=== PATIENT | female | born 1960 | race Caucasian/White ===

== ENCOUNTER 2019-02-09 16:56 | Emergency (ER) | payer OTHER ==
[~2019-02-09] VITALS: Ht 160 cm; Wt 63.5 kg
[2019-02-09] MEDS ORDERED: IV NORMAL SALINE 1000 ML BAG IV ONE ×2 (17:45→19:15)
[2019-02-09] MEDS ORDERED: LEVO150T8 PO (18:08)
[2019-02-09 18:32] LABS: BASOPHILS % (AUTO) 0.1 % (0.0-2.0); EOSINOPHILS % (AUTO) 0.1 % (0.0-7.0); HEMOGLOBIN 8.2 g/dL (10.9-14.3); LYMPHOCYTES # (AUTO) 1.5 K/uL (20.0-40.0); LYMPHOCYTES % (AUTO) 13.2 % (20.5-51.5); MEAN CORPUSCULAR HEMOGLOBIN 20.6 uug (24.7-32.8); MEAN CORPUSCULAR HGB CONC 31 g/dL (32.3-35.6); MEAN CORPUSCULAR VOLUME 65.5 fL (75.5-95.3); MONOCYTES # (AUTO) 1.3 K/uL (2.0-10.0); NEUTROPHILS # (AUTO) 8.2 K/uL (1.8-8.9); NEUTROPHILS % (AUTO) 74.6 % (38.5-71.5); PLATELET COUNT (AUTO) 467 K/uL (179-408); RED BLOOD CELL COUNT(AUTO) 3.98 MIL/uL (3.63-4.92)
[2019-02-09] MEDS ORDERED: ONDANSETRON 4 MG/2 ML VIAL ONE (18:44)
[2019-02-09] MEDS ORDERED: MORPHINE SULFATE 4 MG/1 ML DISP.SYRIN ONE (18:44)
[2019-02-09] MEDS ORDERED: MORPHINE SULFATE 4 MG/1 ML DISP.SYRIN IV ONE (18:45)
[2019-02-09] MEDS ORDERED: ONDANSETRON 4 MG/2 ML VIAL IV ONE (18:45)
[2019-02-09 18:46] LABS: CREATININE 0.9 mg/dL (0.6-1.3); POTASSIUM 3.5 mmol/L (3.5-5.1)
[2019-02-09 19:02] LABS: BILIRUBIN,DIRECT 0.2 mg/dL (0.0-0.2); BILIRUBIN,TOTAL 0.8 mg/dL (0.2-1.0); TOTAL PROTEIN, SERUM 7.5 g/dL (6.4-8.2)
[2019-02-09] MEDS ORDERED: SWABABLE VALVE TRANSFER SET EA MC ONE (19:13)
[2019-02-09] MEDS ORDERED: IV NORMAL SALINE 250 ML IV ONE (19:13)
[2019-02-09] MEDS ORDERED: IOHEXOL 300MG/ML 100 ML INFUS..BTL ONE (19:13)
[2019-02-09 19:20] LABS: BAND % (MANUAL) 2 % (0-10); LYMPHOCYTES % (MANUAL) 13 % (20-40); MONOCYTES % (MANUAL) 11 % (2-10); NEUTROPHILS % (MANUAL) 74 % (42-75)
--- NOTE | 2019-02-09 19:40 | NUR ---
Pt. taken off unit for CT, IV infiltrated and discontinued,
[2019-02-09] MEDS ORDERED: PIPERACILLIN SODIUM/TAZOBACTAM 3.375 G in IV DEXTROSE 5% 50 ML IV ONE (21:00)
[2019-02-09 21:04] LABS: *BILIRUBIN,URIN NEGATIVE (NEGATIVE); *BLOOD, URINE 2+ (NEGATIVE); *CLARITY,URINE CLEAR (CLEAR); *COLOR,URINE YELLOW (YELLOW); *KETONES,URINE NEGATIVE (NEGATIVE); *UROBILINOGEN,URINE 0.2 E.U./dl (NORMAL); LEUKOCYTE ESTERASE ,URINE NEGATIVE (NEGATIVE); NITRITE, URINE NEGATIVE (NEGATIVE); UGLUCOSE NEGATIVE (NEGATIVE)
[2019-02-09 21:14] LABS: BACTERIA,URINE FEW /HPF (NONE SEEN); SQUAMOUS EPITHELIAL CELL,UR FEW /HPF (NONE SEEN); WBC,URINE 0-3 /HPF (0-3)
[2019-02-09] MEDS ORDERED: PIPERACILLIN SODIUM/TAZO 3.375 GM VIAL ONE (21:15)
--- NOTE | 2019-02-09 21:56 | NUR ---
Awaiting call back from [place] for bed, pt. resting in bed, NAD
--- NOTE | 2019-02-09 23:24 | NUR ---
Report given to Fritz ARMSTRONG, awaiting call back for transport details,
--- NOTE | 2019-02-09 23:29 | NUR ---
Pt. going to room 201B, admitting MD Crespo, report called to [phone], transfer consent signed,
--- NOTE | 2019-02-09 23:36 | NUR ---
Pt. up to use restroom, ambulates w/ steady gait, IV intact/patent - no s/s infiltration/phlebitis, monitoring from nurse station,
--- NOTE | 2019-02-10 00:02 | NUR ---
Nael deal/ Samia @ [facility] ambulance ETA for transport @ 0020,
--- NOTE | 2019-02-10 00:25 | NUR ---
[facility] ambulance unit #[id number] here for transport,
--- NOTE | 2019-02-10 00:34 | NUR ---
Pt. taken off unit via stretcher by ambulance, all belongings w/ pt., chart copied and paperwork sent, IV patent/intact - no s/s infiltration/phlebitis, VSS, NAD
--- NOTE | 2019-02-10 00:36 | NUR ---
Per Radiology - CD imaging unable to be performed at this time,
== END 2019-02-10 00:38 | disposition short-term general hospital (02) ==
LOC: ER 16:56
DX: K57.30 Diverticulosis of large intestine without perforation or abscess without bleeding (principal); K51.90 Ulcerative colitis, unspecified, without complications; D62 Acute posthemorrhagic anemia; E03.9 Hypothyroidism, unspecified; Z79.899 Other long term (current) drug therapy
CPT/HCPCS: 36415; 74177; 80048; 80076; 81000; 81001; 83690; 84484; 85025; 85730; 86850; 86900; 86901; 93005; 96365; 96374; 99285; J2270; J2543; J7060; Q9967; 70030-TC; A4663; J2405; J7030; J7050

== ENCOUNTER 2019-02-22 12:11 | Emergency (ER) | payer OTHER ==
[~2019-02-22] VITALS: Ht 160 cm; Wt 63.5 kg
[~2019-02-22 12:11] MED LIST: LEVO150T8 PO
[2019-02-22] MEDS ORDERED: ONDANSETRON 4 MG/2 ML VIAL IV ONE (12:30)
[2019-02-22] MEDS ORDERED: MORPHINE SULFATE 2 MG/1 ML DISP.SYRIN IV ONE (12:30)
[2019-02-22] MEDS ORDERED: IV NORMAL SALINE 1000 ML BAG IV ONE (12:30)
[2019-02-22] MEDS ORDERED: MORPHINE SULFATE 4 MG/1 ML DISP.SYRIN ONE (12:33)
[2019-02-22] MEDS ORDERED: ONDANSETRON 4 MG/2 ML VIAL ONE (12:33)
[2019-02-22 12:46] LABS: HEMOGLOBIN 8.6 g/dL (10.9-14.3); WHITE BLOOD COUNT (AUTO) 9.2 K/uL (3.8-11.8)
[2019-02-22 12:50] LABS: POTASSIUM 3.7 mmol/L (3.5-5.1)
--- NOTE | 2019-02-22 12:54 | NUR ---
PT IS IN ROOM #1A. DR BERMUDEZ EVALUATED THE PT.
[2019-02-22 12:56] LABS: BILIRUBIN,DIRECT 0.2 mg/dL (0.0-0.2); BILIRUBIN,TOTAL 0.7 mg/dL (0.2-1.0); TOTAL PROTEIN, SERUM 7.5 g/dL (6.4-8.2)
[2019-02-22] MEDS ORDERED: IOHEXOL 300MG/ML 100 ML INFUS..BTL ONE (12:57)
[2019-02-22] MEDS ORDERED: IV NORMAL SALINE 250 ML IV ONE (12:57)
[2019-02-22] MEDS ORDERED: SWABABLE VALVE TRANSFER SET EA MC ONE (12:57)
[2019-02-22 13:04] LABS: BASOPHILS % (AUTO) 0.5 % (0.0-2.0); EOSINOPHILS # (AUTO) 0.1 K/uL (0.0-0.7); EOSINOPHILS % (AUTO) 0.7 % (0.0-7.0); HEMATOCRIT 27.4 % (31.2-41.9); LYMPHOCYTES # (AUTO) 1.4 K/uL (20.0-40.0); LYMPHOCYTES % (AUTO) 14.9 % (20.5-51.5); MEAN CORPUSCULAR HEMOGLOBIN 20.9 uug (24.7-32.8); MEAN CORPUSCULAR HGB CONC 31 g/dL (32.3-35.6); MEAN CORPUSCULAR VOLUME 67.1 fL (75.5-95.3); MONOCYTES # (AUTO) 0.6 K/uL (2.0-10.0); MONOCYTES % (AUTO) 6.9 % (0.0-11.0); NEUTROPHILS # (AUTO) 7.1 K/uL (1.8-8.9); PLATELET COUNT (AUTO) 502 K/uL (179-408); RED BLOOD CELL COUNT(AUTO) 4.09 MIL/uL (3.63-4.92)
[2019-02-22] MEDS ORDERED: PIPERACILLIN SODIUM/TAZOBACTAM 3.375 G in IV DEXTROSE 5% 50 ML IV ONE (13:30)
[2019-02-22] MEDS ORDERED: PIPERACILLIN/TAZOBACTAM/D5W 50 ML IV ONE (13:34)
[2019-02-22 13:37] LABS: EOSINOPHILS % (MANUAL) 1 % (0-8); LYMPHOCYTES % (MANUAL) 16 % (20-40); NEUTROPHILS % (MANUAL) 77 % (42-75)
[2019-02-22 13:38] LABS: MONOCYTES % (MANUAL) 6 % (2-10)
--- NOTE | 2019-02-22 14:12 | NUR ---
DR BERMUDEZ REMOVED DRAINAGE CATHETER FROM PT'S WOUND SIDE. WOUND WAS CLEANED WITH PIROXIDE AND N/S 0.9$. GAUZE DRESSING WAS APPLIED. NO BLEEDING. PT TOLERATED TO PROCEDURE WITHOUT COMPLICATIONS.
--- NOTE | 2019-02-22 14:42 | NUR ---
PT WAS D/C'd TO HOME AFTER DR BERMUDEZ RE-EVALUATION. D/C INSTRUCTIONS GIVEN TO THE PT.
[2019-02-22 14:43] VITALS: BP 123/68
== END 2019-02-22 14:47 | disposition home or self-care (01) ==
LOC: ER 12:11
DX: K57.32 Diverticulitis of large intestine without perforation or abscess without bleeding (principal); E03.9 Hypothyroidism, unspecified; Z79.899 Other long term (current) drug therapy
CPT/HCPCS: 36415; 71045; 74178; 80048; 80076; 83605; 85025; 85730; 87040 ×2; 93005; 96365; 96375; 99284; J2270; J2405; J2543; Q9967; A4663; J7030; J7050

== ENCOUNTER 2019-03-13 20:03 | Emergency (ER) | payer OTHER ==
[~2019-03-13] VITALS: Ht 162.6 cm; Wt 61.2 kg
[2019-03-13] MEDS: MORPHINE SULFATE 2 MG/1 ML DISP.SYRIN IV ONE ×2 (20:15→20:44)
[2019-03-13] MEDS ORDERED: METRONIDAZOLE 500 MG/NS 100ML 100 ML IV ONE ×2 (20:15→20:28)
[2019-03-13] MEDS ORDERED: ONDANSETRON 4 MG/2 ML VIAL IV ONE (20:15)
[2019-03-13] MEDS ORDERED: IV NORMAL SALINE 1000 ML BAG IV ONE ×2 (20:15→20:45)
[2019-03-13] MEDS ORDERED: LEVOFLOXACIN 750MG/D5W 150 ML IV ONE ×2 (20:15→20:28)
--- NOTE | 2019-03-13 20:15 | NUR ---
BIB [facility] for c/o abd pain from surg site x3 days with worsening pain. Speech is clear, speaks in complete sentences. No neuro deficits. A/Ox3. Respiratory even and unlabored, no cough no sob. No cardiovascular distress noted. Patient previous surgical site on left abdominal quadrant. Pus noted on dressing and redness in the surrounding area. Denies any n/v/d. Patient in bed at lowest position, sr upx2, call light within reach. Fall precautions implemented per protocol.
[2019-03-13] MEDS ORDERED: METR500T PO (20:25)
[2019-03-13] MEDS ORDERED: CIPR-262 PO (20:25)
[2019-03-13] MEDS ORDERED: ONDANSETRON 4 MG/2 ML VIAL ONE (20:27)
[2019-03-13] MEDS ORDERED: MORPHINE SULFATE 2 MG/1 ML DISP.SYRIN ONE (20:28)
[2019-03-13 20:41] LABS: CREATININE 0.8 mg/dL (0.6-1.3); POTASSIUM 3.5 mmol/L (3.5-5.1)
[2019-03-13 20:42] LABS: BASOPHILS # (AUTO) 0.1 K/uL (0.0-8.0); EOSINOPHILS # (AUTO) 0.1 K/uL (0.0-0.7); EOSINOPHILS % (AUTO) 1.1 % (0.0-7.0); LYMPHOCYTES # (AUTO) 1.3 K/uL (20.0-40.0); MONOCYTES # (AUTO) 0.6 K/uL (2.0-10.0); NEUTROPHILS # (AUTO) 5.5 K/uL (1.8-8.9); WHITE BLOOD COUNT (AUTO) 7.6 K/uL (3.8-11.8)
[2019-03-13 20:44] LABS: BASOPHILS % (AUTO) 1.5 % (0.0-2.0); LYMPHOCYTES % (AUTO) 16.7 % (20.5-51.5); MEAN CORPUSCULAR HEMOGLOBIN 21.4 uug (24.7-32.8); MEAN CORPUSCULAR HGB CONC 32 g/dL (32.3-35.6); MEAN CORPUSCULAR VOLUME 66.4 fL (75.5-95.3); MONOCYTES % (AUTO) 8.5 % (0.0-11.0); NEUTROPHILS % (AUTO) 72.2 % (38.5-71.5); PLATELET COUNT (AUTO) 633 K/uL (179-408); RED BLOOD CELL COUNT(AUTO) 3.01 MIL/uL (3.63-4.92)
[2019-03-13 20:46] LABS: BILIRUBIN,DIRECT 0.1 mg/dL (0.0-0.2); BILIRUBIN,TOTAL 0.5 mg/dL (0.2-1.0)
[2019-03-13 20:49] LABS: HEMOGLOBIN 6.5 g/dL (10.9-14.3)
[2019-03-13] MEDS ORDERED: IV NORMAL SALINE 250 ML IV ONE (21:10)
[2019-03-13] MEDS ORDERED: IOHEXOL 350 100 ML INFUS..BTL ONE (21:10)
[2019-03-13] MEDS ORDERED: SWABABLE VALVE TRANSFER SET EA MC ONE (21:10)
--- NOTE | 2019-03-13 21:11 | NUR ---
Patient transported to CT in stable condition.
[2019-03-13 21:13] LABS: BAND % (MANUAL) 4 % (0-10); EOSINOPHILS % (MANUAL) 1 % (0-8); LYMPHOCYTES % (MANUAL) 14 % (20-40); MONOCYTES % (MANUAL) 6 % (2-10); NEUTROPHILS % (MANUAL) 75 % (42-75)
--- NOTE | 2019-03-13 21:33 | NUR ---
Patient back in room from CT in stable condition.
[2019-03-13] MEDS ORDERED: VANCOMYCIN IV 1,000 MG in IV DEXTROSE 5% 250 ML IV ONE (22:15)
--- NOTE | 2019-03-13 22:40 | NUR ---
MINOO on the phone [facility].
[2019-03-13 23:08] LABS: *BILIRUBIN,URIN NEGATIVE (NEGATIVE); *BLOOD, URINE NEGATIVE (NEGATIVE); *CLARITY,URINE CLEAR (CLEAR); *COLOR,URINE YELLOW (YELLOW); *KETONES,URINE NEGATIVE (NEGATIVE); *UROBILINOGEN,URINE 0.2 E.U./dl (NORMAL); LEUKOCYTE ESTERASE ,URINE NEGATIVE (NEGATIVE); NITRITE, URINE NEGATIVE (NEGATIVE); UGLUCOSE NEGATIVE (NEGATIVE)
--- NOTE | 2019-03-13 23:24 | NUR ---
Dr. Brooks from [place] is on the phone with [facility].
[2019-03-13] MEDS ORDERED: VANCOMYCIN IV 200 ML ONE (23:57)
--- NOTE | 2019-03-14 00:20 | NUR ---
Venus from [place] called to give information for patient room and transport. Number to call [phone] the assigned nurse is Shalini. Patient will be going to bed 301A. [facility] will be the transport and ETA is about 30min
--- NOTE | 2019-03-14 01:27 | NUR ---
IV Vanco infusion is not yet complete upon discharge. Spoke to NATHANIEL Loya from [facility] and endorsed that it needs to be completed at their hospital. Patient Tranfers to outside Facility Physician:Dr. Brooks Location:[facility] BED 301A Nurse: NATHANIEL Loya
== END 2019-03-14 01:36 | disposition short-term general hospital (02) ==
LOC: ER 20:06
DX: L02.211 Cutaneous abscess of abdominal wall (principal); K52.9 Noninfective gastroenteritis and colitis, unspecified; D64.9 Anemia, unspecified; E03.9 Hypothyroidism, unspecified; Z79.2 Long term (current) use of antibiotics; Z79.899 Other long term (current) drug therapy
CPT/HCPCS: 36415; 74177; 80048; 80076; 81001; 83605; 84145; 85025; 85730; 86850; 86900; 86901; 87040 ×2; 87086; 93005; 96365; 96366; 96367; 96368; 96375; 99291; J1956; J2270; J2405; J3370; J3490; Q9967; A4663; J7030; J7050

== ENCOUNTER 2019-05-23 20:51 | Emergency (ER) | payer OTHER ==
[~2019-05-23] VITALS: Ht 162.6 cm; Wt 61.2 kg
[~2019-05-23 20:51] MED LIST changes: +CIPR-262 PO; +METR500T PO
[2019-05-23] MEDS ORDERED: IV NORMAL SALINE 1000 ML BAG IV ONE (21:15)
[2019-05-23] MEDS ORDERED: ONDANSETRON 4 MG/2 ML VIAL IV ONE (21:15)
[2019-05-23] MEDS ORDERED: HYDROMORPHONE 1 MG/1 ML DISP.SYRIN IV ONE (21:15)
[2019-05-23] MEDS ORDERED: ONDANSETRON 4 MG/2 ML VIAL ONE (21:31)
[2019-05-23] MEDS ORDERED: HYDROMORPHONE 1 MG/1 ML DISP.SYRIN ONE (21:31)
[2019-05-23 21:58] LABS: BASOPHILS % (AUTO) 0.4 % (0.0-2.0); EOSINOPHILS # (AUTO) 0.1 K/uL (0.0-0.7); EOSINOPHILS % (AUTO) 1.7 % (0.0-7.0); HEMATOCRIT 37.5 % (31.2-41.9); HEMOGLOBIN 12.2 g/dL (10.9-14.3); LYMPHOCYTES % (AUTO) 12.7 % (20.5-51.5); MEAN CORPUSCULAR HEMOGLOBIN 26.7 uug (24.7-32.8); MEAN CORPUSCULAR HGB CONC 33 g/dL (32.3-35.6); MEAN CORPUSCULAR VOLUME 81.8 fL (75.5-95.3); MONOCYTES # (AUTO) 0.4 K/uL (2.0-10.0); MONOCYTES % (AUTO) 5.3 % (0.0-11.0); NEUTROPHILS # (AUTO) 6.2 K/uL (1.8-8.9); NEUTROPHILS % (AUTO) 79.9 % (38.5-71.5); PLATELET COUNT (AUTO) 258 K/uL (179-408); RED BLOOD CELL COUNT(AUTO) 4.58 MIL/uL (3.63-4.92); WHITE BLOOD COUNT (AUTO) 7.8 K/uL (3.8-11.8)
[2019-05-23 22:12] LABS: BILIRUBIN,DIRECT 0.1 mg/dL (0.0-0.2); BILIRUBIN,TOTAL 0.6 mg/dL (0.2-1.0); CREATININE 0.6 mg/dL (0.6-1.3); POTASSIUM 3.5 mmol/L (3.5-5.1); TOTAL PROTEIN, SERUM 7.1 g/dL (6.4-8.2)
--- NOTE | 2019-05-23 23:56 | NUR ---
patient states she feels much better and is ready to go home discussed d/c instructions and verbalizes understanding.
[2019-05-23 23:57] VITALS: BP 122/70
== END 2019-05-24 00:13 | disposition home or self-care (01) ==
LOC: ER 20:51
DX: R10.84 Generalized abdominal pain (principal); R11.2 Nausea with vomiting, unspecified; E03.9 Hypothyroidism, unspecified; Z79.2 Long term (current) use of antibiotics; Z79.899 Other long term (current) drug therapy
CPT/HCPCS: 36415; 71045; 74176; 80048; 80076; 83605; 83690; 84484; 85025; 85730; 87040; 93005; 96361; 96374; 96375; 99284; J1170; J2405; 70030-TC; A4663; J7030

== ENCOUNTER 2019-09-11 04:30 | Emergency (ER) | payer OTHER ==
[~2019-09-11] VITALS: Ht 162.6 cm; Wt 61.2 kg
--- NOTE | 2019-09-11 04:40 | NUR ---
Patient BIB [facility] from home for c/o abdominal pain for 10hrs with N/V.
[2019-09-11] MEDS ORDERED: KETAMINE HCL 500 MG/10 ML INJ IV ONE (04:45)
[2019-09-11] MEDS ORDERED: IV NORMAL SALINE 1000 ML BAG IV ONE ×2 (04:45→07:15)
[2019-09-11] MEDS ORDERED: KETAMINE HCL 500 MG/10 ML INJ ONE (05:15)
[2019-09-11 05:21] LABS: BASOPHILS % (AUTO) 0.1 % (0.0-2.0); EOSINOPHILS # (AUTO) 0.1 K/uL (0.0-0.7); HEMOGLOBIN 12.1 g/dL (10.9-14.3); LYMPHOCYTES # (AUTO) 1.1 K/uL (20.0-40.0); LYMPHOCYTES % (AUTO) 16.9 % (20.5-51.5); MEAN CORPUSCULAR HEMOGLOBIN 27.8 uug (24.7-32.8); MEAN CORPUSCULAR HGB CONC 34 g/dL (32.3-35.6); MEAN CORPUSCULAR VOLUME 82.7 fL (75.5-95.3); MONOCYTES # (AUTO) 0.6 K/uL (2.0-10.0); MONOCYTES % (AUTO) 8.4 % (0.0-11.0); NEUTROPHILS % (AUTO) 73.6 % (38.5-71.5); PLATELET COUNT (AUTO) 340 K/uL (179-408); RED BLOOD CELL COUNT(AUTO) 4.35 MIL/uL (3.63-4.92); WHITE BLOOD COUNT (AUTO) 6.8 K/uL (3.8-11.8)
[2019-09-11] MEDS ORDERED: LORAZEPAM 2 MG/1 ML VIAL ONE (05:28)
[2019-09-11] MEDS ORDERED: ONDANSETRON 4 MG/2 ML VIAL IV ONE (05:30)
[2019-09-11] MEDS ORDERED: LORAZEPAM 2 MG/1 ML VIAL IV ONE (05:30)
[2019-09-11] MEDS ORDERED: ONDANSETRON 4 MG/2 ML VIAL ONE (05:32)
[2019-09-11 05:57] LABS: CREATININE 0.8 mg/dL (0.6-1.3); POTASSIUM 3.8 mmol/L (3.5-5.1)
[2019-09-11 06:02] LABS: BILIRUBIN,DIRECT 0.1 mg/dL (0.0-0.2); BILIRUBIN,TOTAL 0.5 mg/dL (0.2-1.0); TOTAL PROTEIN, SERUM 7.6 g/dL (6.4-8.2)
--- NOTE | 2019-09-11 07:00 | NUR ---
Patient sleeping with no distress noted.
[2019-09-11] MEDS ORDERED: FAMOTIDINE. 20 MG/2 ML VIAL IV ONE ×2 (07:15→07:16)
[2019-09-11] MEDS ORDERED: HYDROMORPHONE 1 MG/1 ML DISP.SYRIN IV ONE (07:15)
[2019-09-11] MEDS ORDERED: KETOROLAC TROMETHAMINE 15 MG INJ IVP ONE (07:15)
[2019-09-11] MEDS ORDERED: KETOROLAC TROMETHAMINE 15 MG INJ ONE (07:16)
[2019-09-11] MEDS ORDERED: HYDROMORPHONE 1 MG/1 ML DISP.SYRIN ONE (07:16)
[2019-09-11] MEDS ORDERED: SWABABLE VALVE TRANSFER SET EA MC ONE (07:41)
[2019-09-11] MEDS ORDERED: IOHEXOL 300MG/ML 100 ML INFUS..BTL ONE (07:41)
[2019-09-11] MEDS ORDERED: IV NORMAL SALINE 250 ML IV ONE (07:41)
--- NOTE | 2019-09-11 07:51 | NUR ---
Patient taken down to CT in stable condition.
[2019-09-11] MEDS ORDERED: LIDOCAINE 2% (UROJET) 10 ML JELLY MM ONE ×2 (09:36→09:45)
[2019-09-11] MEDS ORDERED: IV NS 1000 ML 1,000 ML IV ONE (09:45)
[2019-09-11 09:58] LABS: *BILIRUBIN,URIN NEGATIVE (NEGATIVE); *CLARITY,URINE CLEAR (CLEAR); *COLOR,URINE YELLOW (YELLOW); *KETONES,URINE NEGATIVE (NEGATIVE); *UROBILINOGEN,URINE 0.2 E.U./dl (NORMAL); LEUKOCYTE ESTERASE ,URINE NEGATIVE (NEGATIVE); NITRITE, URINE NEGATIVE (NEGATIVE); PH,URINE 5.5 (5.0-8.0); UGLUCOSE NEGATIVE (NEGATIVE)
--- NOTE | 2019-09-11 09:58 | NUR ---
Patient refusing NGT insertion, is aware
[2019-09-11 09:59] LABS: *BLOOD, URINE TRACE (NEGATIVE); RBC,URINE 0-3 /HPF (0-3)
[2019-09-11 10:00] LABS: BACTERIA,URINE NONE SEEN /HPF (NONE SEEN); SQUAMOUS EPITHELIAL CELL,UR NONE SEEN /HPF (NONE SEEN); WBC,URINE 0-3 /HPF (0-3)
--- NOTE | 2019-09-11 11:00 | NUR ---
Patient consented to NGT insertion now.
--- NOTE | 2019-09-11 11:25 | NUR ---
Patient is resting comfortably on gurney, tolerating the NGT to low intermittent suction, 200ml dark greenish gastric output seen in the canister, pending transfer information still
--- NOTE | 2019-09-11 13:55 | NUR ---
Patient will be tranferred to outside Facility: [facility] Physician: Dr Leon Location: [facility] room 310A BLS ambulance cloth picker: [id number] arranged by [employer] nurse: [facility] unit [facility] EMT Sanya accepted the patient
== END 2019-09-11 14:06 | disposition short-term general hospital (02) ==
LOC: ER 04:32
DX: K56.609 Unspecified intestinal obstruction, unspecified as to partial versus complete obstruction (principal); R11.10 Vomiting, unspecified; E03.9 Hypothyroidism, unspecified; Z79.2 Long term (current) use of antibiotics; Z79.899 Other long term (current) drug therapy
CPT/HCPCS: 36415; 74177; 80048; 80076; 81000; 81001; 83605; 83690; 85025; 93005; 96361; 96374; 96375; 99285; J1170; J1885; J2060; J2405; J3490 ×2; Q9967; A4663; J7030; J7050

== ENCOUNTER 2019-11-10 11:02 | Emergency (ER) | payer OTHER ==
[~2019-11-10] VITALS: Ht 162.6 cm; Wt 68.0 kg
--- NOTE | 2019-11-10 11:44 | NUR ---
Urine sent to lab.
[2019-11-10 11:56] LABS: *BILIRUBIN,URIN NEGATIVE (NEGATIVE); *CLARITY,URINE CLEAR (CLEAR); *COLOR,URINE YELLOW (YELLOW); *KETONES,URINE NEGATIVE (NEGATIVE); *UROBILINOGEN,URINE 0.2 E.U./dl (NORMAL); LEUKOCYTE ESTERASE ,URINE 1+ (NEGATIVE); NITRITE, URINE NEGATIVE (NEGATIVE); PH,URINE 5.5 (5.0-8.0); UGLUCOSE NEGATIVE (NEGATIVE)
[2019-11-10 12:06] LABS: *BLOOD, URINE TRACE (NEGATIVE)
[2019-11-10 12:09] LABS: RBC,URINE 0-3 /HPF (0-3); SQUAMOUS EPITHELIAL CELL,UR FEW /HPF (NONE SEEN)
[2019-11-10 12:10] LABS: BASOPHILS % (AUTO) 0.5 % (0.0-2.0); EOSINOPHILS # (AUTO) 0.2 K/uL (0.0-0.7); EOSINOPHILS % (AUTO) 3.8 % (0.0-7.0); HEMATOCRIT 36.1 % (31.2-41.9); HEMOGLOBIN 11.7 g/dL (10.9-14.3); LYMPHOCYTES # (AUTO) 1.3 K/uL (20.0-40.0); LYMPHOCYTES % (AUTO) 30.5 % (20.5-51.5); MEAN CORPUSCULAR HEMOGLOBIN 27.4 uug (24.7-32.8); MEAN CORPUSCULAR HGB CONC 32 g/dL (32.3-35.6); MEAN CORPUSCULAR VOLUME 84.6 fL (75.5-95.3); MONOCYTES # (AUTO) 0.6 K/uL (2.0-10.0); MONOCYTES % (AUTO) 13.4 % (0.0-11.0); NEUTROPHILS # (AUTO) 2.2 K/uL (1.8-8.9); NEUTROPHILS % (AUTO) 51.8 % (38.5-71.5); PLATELET COUNT (AUTO) 197 K/uL (179-408); RED BLOOD CELL COUNT(AUTO) 4.27 MIL/uL (3.63-4.92); WHITE BLOOD COUNT (AUTO) 4.2 K/uL (3.8-11.8)
[2019-11-10 12:13] LABS: POTASSIUM 3.8 mmol/L (3.5-5.1)
--- NOTE | 2019-11-10 12:50 | NUR ---
Patient discharged to home in stable condition. Written and verbal after care instructions given. Patient verbalizes understanding of instructions. Patient walk with steady gait.
[2019-11-10 12:57] VITALS: BP 155/82
== END 2019-11-10 12:52 | disposition home or self-care (01) ==
LOC: ER 11:02
DX: N13.1 Hydronephrosis with ureteral stricture, not elsewhere classified (principal); C19 Malignant neoplasm of rectosigmoid junction; C78.5 Secondary malignant neoplasm of large intestine and rectum; Z92.21 Personal history of antineoplastic chemotherapy; Z90.49 Acquired absence of other specified parts of digestive tract; Z93.3 Colostomy status; E03.9 Hypothyroidism, unspecified; C79.9 Secondary malignant neoplasm of unspecified site
CPT/HCPCS: 36415; 85025; A4663

== ENCOUNTER 2020-05-12 03:36 | Emergency (ER) | payer OTHER ==
[~2020-05-12] VITALS: Ht 162.6 cm; Wt 77.1 kg
[~2020-05-12 03:36] MED LIST changes: +CHEMO; -CIPR-262 PO; -LEVO150T8 PO; -METR500T PO
[2020-05-12] MEDS ORDERED: CAPE500T PO ×2 (03:48)
[2020-05-12] MEDS ORDERED: FAMOTIDINE 20 MG TABLET PO ONE (04:00)
[2020-05-12] MEDS ORDERED: predniSONE 20 MG TABLET PO ONE (04:00)
[2020-05-12] MEDS ORDERED: diphenhydrAMINE 25 MG CAP PO ONE ×2 (04:06→04:15)
[2020-05-12] MEDS ORDERED: predniSONE 50 MG TABLET ONE (04:06)
[2020-05-12] MEDS ORDERED: FAMOTIDINE 20 MG TABLET ONE (04:06)
[2020-05-12] MEDS: diphenhydrAMINE 25 MG/10 ML UDC PO ONE ×2 (04:06→04:07)
[2020-05-12] MEDS ORDERED: predniSONE 10 MG TABLET ONE (04:06)
--- NOTE | 2020-05-12 04:11 | NUR ---
Patient discharged to home in stable condition. Written and verbal after care instructions given. Patient verbalizes understanding of instructions. Stressed follow up or return to ER for worsening s/s.
[2020-05-12 04:13] VITALS: BP 145/75
== END 2020-05-12 04:13 | disposition home or self-care (01) ==
LOC: ER 03:40
DX: L23.89 Allergic contact dermatitis due to other agents (principal); H01.9 Unspecified inflammation of eyelid; E03.9 Hypothyroidism, unspecified; R03.0 Elevated blood-pressure reading, without diagnosis of hypertension; Z85.038 Personal history of other malignant neoplasm of large intestine
CPT/HCPCS: 99284; J7512 ×2; Q0163; A4663

== ENCOUNTER 2020-05-28 22:53 | Emergency (ER) | payer OTHER ==
[~2020-05-28] VITALS: Ht 162.6 cm; Wt 77.1 kg
[~2020-05-28 22:53] MED LIST changes: +CAPE500T PO; -CHEMO
--- NOTE | 2020-05-28 23:04 | NUR ---
at [facility] for assessment
[2020-05-28] MEDS ORDERED: IV NORMAL SALINE 1000 ML BAG IV ONE (23:15)
[2020-05-28] MEDS ORDERED: NITROGLYCERIN 0.4 MG/TAB BOTTLE SL ONE ×2 (23:15→23:19)
[2020-05-28] MEDS ORDERED: ASPIRIN 325 MG TABLET PO ONE (23:15)
[2020-05-28] MEDS ORDERED: ASPIRIN 325 MG TABLET ONE (23:19)
--- NOTE | 2020-05-28 23:35 | NUR ---
patient refused to be swabbed for covid
[2020-05-28 23:41] LABS: BASOPHILS % (AUTO) 0.8 % (0.0-2.0); EOSINOPHILS # (AUTO) 0.4 K/uL (0.0-0.7); EOSINOPHILS % (AUTO) 5.9 % (0.0-7.0); HEMATOCRIT 37.3 % (31.2-41.9); HEMOGLOBIN 12.6 g/dL (10.9-14.3); LYMPHOCYTES # (AUTO) 1.4 K/uL (20.0-40.0); LYMPHOCYTES % (AUTO) 23.4 % (20.5-51.5); MEAN CORPUSCULAR HEMOGLOBIN 32.3 uug (24.7-32.8); MEAN CORPUSCULAR HGB CONC 34 g/dL (32.3-35.6); MEAN CORPUSCULAR VOLUME 95.7 fL (75.5-95.3); MONOCYTES # (AUTO) 0.5 K/uL (2.0-10.0); MONOCYTES % (AUTO) 7.9 % (0.0-11.0); NEUTROPHILS # (AUTO) 3.7 K/uL (1.8-8.9); PLATELET COUNT (AUTO) 238 K/uL (179-408)
[2020-05-28 23:45] LABS: CREATININE 1.1 mg/dL (0.6-1.3); POTASSIUM 3.9 mmol/L (3.5-5.1)
[2020-05-28 23:58] LABS: BILIRUBIN,DIRECT 0.1 mg/dL (0.0-0.2); BILIRUBIN,TOTAL 0.3 mg/dL (0.2-1.0); TOTAL PROTEIN, SERUM 7.4 g/dL (6.4-8.2)
--- NOTE | 2020-05-29 00:06 | NUR ---
Patient discharged to home in stable condition. IV discontinued, able to ambulate with steady gait, states she no longer has chest pain. Took all belongings, Written and verbal after care instructions given. Patient verbalizes understanding of instructions. Stressed follow up or return to ER for worsening s/s.
[2020-05-29 00:13] VITALS: BP 119/59
== END 2020-05-29 00:10 | disposition home or self-care (01) ==
LOC: ER 22:53
DX: R07.89 Other chest pain (principal); C18.9 Malignant neoplasm of colon, unspecified; Z79.899 Other long term (current) drug therapy; Z93.3 Colostomy status; E03.9 Hypothyroidism, unspecified
CPT/HCPCS: 36415; 70030-TC; 71045; 85025; 85730; 93005; A4663; J7030

== ENCOUNTER 2020-08-06 22:38 | Inpatient (IN) | payer OTHER ==
[~2020-08-06] VITALS: Ht 162.6 cm; Wt 77.1 kg
[2020-08-06] MEDS ORDERED: ONDANSETRON 4 MG/2 ML VIAL IV ONE (23:45)
[2020-08-06] MEDS ORDERED: IV NORMAL SALINE 1000 ML BAG IV ONE (23:45)
[2020-08-06] MEDS ORDERED: MORPHINE SULFATE 2 MG/1 ML DISP.SYRIN IV ONE (23:45)
[2020-08-07 00:06] LABS: BASOPHILS % (AUTO) 0.3 % (0.0-2.0); EOSINOPHILS # (AUTO) 0.2 K/uL (0.0-0.7); EOSINOPHILS % (AUTO) 2.4 % (0.0-7.0); HEMATOCRIT 36.6 % (31.2-41.9); HEMOGLOBIN 12.2 g/dL (10.9-14.3); LYMPHOCYTES # (AUTO) 1.1 K/uL (20.0-40.0); LYMPHOCYTES % (AUTO) 17.3 % (20.5-51.5); MEAN CORPUSCULAR HEMOGLOBIN 28.7 uug (24.7-32.8); MEAN CORPUSCULAR HGB CONC 33 g/dL (32.3-35.6); MEAN CORPUSCULAR VOLUME 86.3 fL (75.5-95.3); MONOCYTES # (AUTO) 0.5 K/uL (2.0-10.0); MONOCYTES % (AUTO) 7.4 % (0.0-11.0); NEUTROPHILS # (AUTO) 4.7 K/uL (1.8-8.9); NEUTROPHILS % (AUTO) 72.6 % (38.5-71.5); PLATELET COUNT (AUTO) 364 K/uL (179-408); RED BLOOD CELL COUNT(AUTO) 4.24 MIL/uL (3.63-4.92); WHITE BLOOD COUNT (AUTO) 6.4 K/uL (3.8-11.8)
[2020-08-07 00:08] LABS: CREATININE 0.9 mg/dL (0.6-1.3); POTASSIUM 3.8 mmol/L (3.5-5.1)
[2020-08-07 00:11] LABS: *BILIRUBIN,URIN NEGATIVE (NEGATIVE); *BLOOD, URINE NEGATIVE (NEGATIVE); *CLARITY,URINE CLEAR (CLEAR); *COLOR,URINE YELLOW (YELLOW); *KETONES,URINE NEGATIVE (NEGATIVE); *UROBILINOGEN,URINE 0.2 E.U./dl (NORMAL); LEUKOCYTE ESTERASE ,URINE NEGATIVE (NEGATIVE); NITRITE, URINE NEGATIVE (NEGATIVE); PH,URINE 5.5 (5.0-8.0); UGLUCOSE NEGATIVE (NEGATIVE)
[2020-08-07 00:14] LABS: BILIRUBIN,TOTAL 0.5 mg/dL (0.2-1.0); TOTAL PROTEIN, SERUM 7.7 g/dL (6.4-8.2)
[2020-08-07] MEDS ORDERED: ONDANSETRON 4 MG/2 ML VIAL ONE (00:35)
[2020-08-07] MEDS ORDERED: MORPHINE SULFATE 4 MG/1 ML DISP.SYRIN ONE ×2 (00:35→03:55)
[2020-08-07] MEDS ORDERED: IOHEXOL 300MG/ML 100 ML INFUS..BTL ONE (01:22)
[2020-08-07] MEDS ORDERED: IV NORMAL SALINE 250 ML IV ONE (01:22)
[2020-08-07] MEDS ORDERED: SWABABLE VALVE TRANSFER SET EA MC ONE (01:22)
[2020-08-07] MEDS ORDERED: diphenhydrAMINE 50 MG/1 ML VIAL IV ONE (03:00)
[2020-08-07] MEDS ORDERED: METOCLOPRAMIDE HCL 10 MG/2 ML VIAL IV ONE (03:00)
[2020-08-07] MEDS ORDERED: IV NORMAL SALINE 1000 ML BAG IV ONE (03:00)
[2020-08-07] MEDS ORDERED: METOCLOPRAMIDE HCL 10 MG/2 ML VIAL ONE (03:04)
[2020-08-07] MEDS ORDERED: diphenhydrAMINE 50 MG/1 ML VIAL ONE (03:04)
[2020-08-07] MEDS ORDERED: MORPHINE SULFATE 4 MG/1 ML DISP.SYRIN IV ONE (03:30)
[2020-08-07] MEDS ORDERED: LIDOCAINE VISCUS 2% 15 ML UDC MM ONE (03:45)
[2020-08-07] MEDS ORDERED: LIDOCAINE VISCUS 2% 15 ML UDC ONE (04:01)
[2020-08-07] MEDS ORDERED: MORPHINE SULFATE 2 MG/1 ML DISP.SYRIN ONE (04:01)
--- NOTE | 2020-08-07 04:59 | NUR ---
ALL MD ORDERS COMPLETED, MEDS ADMINISTERED, NGT PLAQCED AND UN INTERMITTENT WALL SUCTION, COVID SWAB SENT. PRESENTLY PT SLEEPING ,EYES CLOSED.
--- NOTE | 2020-08-07 06:51 | NUR ---
PT ASLEEP/EYES , SBAR REPORT TO AM SHIFT. PT AWING FOR [facility] BED, [facility] ACCEPTED.
[2020-08-07] MEDS ORDERED: ONDANSETRON 4 MG/2 ML VIAL IV PRN (07:15)
[2020-08-07] MEDS ORDERED: Z GUARD REMEDY PASTE 57 GM TUBE TOP PRN (07:15)
[2020-08-07] MEDS ORDERED: IV NS 1000 ML 1,000 ML IV PRN (07:15)
[2020-08-07] MEDS ORDERED: MAGNESIUM HYDROXIDE 30 ML LIQUID UDC PO PRN (07:15)
[2020-08-07] MEDS ORDERED: HYDROCODONE/APAP 5-325MG TABLET PO PRN (07:15)
[2020-08-07] MEDS ORDERED: ACETAMINOPHEN 325 MG TABLET PO PRN (07:15)
--- NOTE | 2020-08-07 08:22 | NUR ---
PT AMBULATED TO BATHROOM STEADY GAIT. PT REQUESTING TO TAKE THE NG TUBE OUT AND BE D/SAMUEL.
[2020-08-07] MEDS ORDERED: IV 1/2NS 1000 ML 1,000 ML IV PRN (10:45)
[2020-08-07] MEDS ORDERED: ENOXAPARIN SODIUM 40 MG/0.4 ML DISP.SYRIN SQ SCH (11:00)
--- NOTE | 2020-08-07 11:00 | NUR ---
DR. CORONEL IAT BEDSIDE D/CING THE PT.
--- NOTE | 2020-08-07 11:13 | NUR ---
Patient discharged to home in stable condition. Written and verbal after care instructions given. Patient verbalizes understanding of instructions. Stressed follow up or return to ER for worsening s/s. A COPY OF ALL THE STUDIES PROVIDED FOR PT. PT WILL FOLLOW UP IMMEDIARTELY WITH HER OWN PMD.
[2020-08-07 11:15] VITALS: BP 129/61
== END 2020-08-07 11:13 | disposition home or self-care (01) | DRG 247 ==
LOC: ER 22:38 → TRANSITION 08-07 06:30
PROVIDERS: ADMIT Internal Medicine; ATTEND Internal Medicine
DX: K56.51 Intestinal adhesions [bands], with partial obstruction (principal); K52.89 Other specified noninfective gastroenteritis and colitis; E03.9 Hypothyroidism, unspecified; E66.9 Obesity, unspecified; Z68.29 Body mass index [BMI] 29.0-29.9, adult; J98.11 Atelectasis; K43.9 Ventral hernia without obstruction or gangrene; Z85.038 Personal history of other malignant neoplasm of large intestine; Z90.49 Acquired absence of other specified parts of digestive tract; Z92.21 Personal history of antineoplastic chemotherapy; K56.41 Fecal impaction; R91.1 Solitary pulmonary nodule
CPT/HCPCS: 36415; 70030-TC; 74018; 83605; 83690; 85025; 87040; 87086; A4663; G0378; J1200; J2270; J2405; J2765; J7030; J7050; Q9967

== ENCOUNTER 2020-11-02 00:54 | Emergency (ER) | payer OTHER ==
[~2020-11-02] VITALS: Ht 162.6 cm; Wt 76.2 kg
[2020-11-02] MEDS ORDERED: MECLIZINE HCL 25 MG TABLET PO ONE (01:30)
[2020-11-02] MEDS ORDERED: LORAZEPAM 0.5 MG TABLET PO ONE (01:30)
[2020-11-02 01:41] LABS: BASOPHILS % (AUTO) 0.3 % (0.0-2.0); EOSINOPHILS # (AUTO) 0.1 K/uL (0.0-0.7); EOSINOPHILS % (AUTO) 1.3 % (0.0-7.0); HEMATOCRIT 38.6 % (31.2-41.9); HEMOGLOBIN 12.3 g/dL (10.9-14.3); LYMPHOCYTES # (AUTO) 1.4 K/uL (20.0-40.0); LYMPHOCYTES % (AUTO) 17.5 % (20.5-51.5); MEAN CORPUSCULAR HEMOGLOBIN 25.3 uug (24.7-32.8); MEAN CORPUSCULAR HGB CONC 32 g/dL (32.3-35.6); MEAN CORPUSCULAR VOLUME 79.1 fL (75.5-95.3); MONOCYTES # (AUTO) 0.5 K/uL (2.0-10.0); MONOCYTES % (AUTO) 6.4 % (0.0-11.0); NEUTROPHILS # (AUTO) 6.1 K/uL (1.8-8.9); NEUTROPHILS % (AUTO) 74.5 % (38.5-71.5); PLATELET COUNT (AUTO) 273 K/uL (179-408); RED BLOOD CELL COUNT(AUTO) 4.88 MIL/uL (3.63-4.92); WHITE BLOOD COUNT (AUTO) 8.2 K/uL (3.8-11.8)
[2020-11-02] MEDS ORDERED: MECLIZINE HCL 25 MG TABLET ONE (01:41)
[2020-11-02] MEDS ORDERED: LORAZEPAM 0.5 MG TABLET ONE (01:42)
[2020-11-02 01:52] LABS: CREATININE 0.8 mg/dL (0.6-1.3); POTASSIUM 3.7 mmol/L (3.5-5.1)
[2020-11-02 01:57] LABS: BILIRUBIN,DIRECT 0.1 mg/dL (0.0-0.2); BILIRUBIN,TOTAL 0.4 mg/dL (0.2-1.0); TOTAL PROTEIN, SERUM 7.8 g/dL (6.4-8.2)
[2020-11-02 02:05] LABS: THYROID STIMULATING HORMONE 6.071 mIU/mL (0.358-3.740)
[2020-11-02 02:11] LABS: *BILIRUBIN,URIN NEGATIVE (NEGATIVE); *BLOOD, URINE NEGATIVE (NEGATIVE); *CLARITY,URINE CLEAR (CLEAR); *KETONES,URINE NEGATIVE (NEGATIVE); *UROBILINOGEN,URINE 0.2 E.U./dl (NORMAL); LEUKOCYTE ESTERASE ,URINE NEGATIVE (NEGATIVE); NITRITE, URINE NEGATIVE (NEGATIVE); PH,URINE 5.5 (5.0-8.0); UGLUCOSE NEGATIVE (NEGATIVE)
[2020-11-02 02:15] LABS: *COLOR,URINE STRAW (YELLOW)
[2020-11-02] MEDS ORDERED: LORA0.5T48 GT ×2 (02:33→02:37)
[2020-11-02] MEDS ORDERED: MECL-159 PO (02:36)
[2020-11-02 02:52] VITALS: BP 133/82
== END 2020-11-02 02:53 | disposition home or self-care (01) ==
LOC: ER 01:00
DX: F45.8 Other somatoform disorders (principal); Z85.038 Personal history of other malignant neoplasm of large intestine; E03.9 Hypothyroidism, unspecified; Z90.49 Acquired absence of other specified parts of digestive tract; R19.7 Diarrhea, unspecified
CPT/HCPCS: 36415; 83735; 84443; 85025; A4663; J8597

== ENCOUNTER 2023-05-24 13:44 | Emergency (ER) | payer OTHER ==
[~2023-05-24] VITALS: Ht 162.6 cm; Wt 68.0 kg
[~2023-05-24 13:44] MED LIST changes: -CAPE500T PO; +LORA0.5T48 GT; +MECL-159 PO
[2023-05-24 15:13] VITALS: O2SAT 98
[2023-05-24 17:16] LABS: BASOPHILS # (AUTO) 0.1 K/UL (0.0-0.2); EOSINOPHILS # (AUTO) 0.2 K/uL (0.0-0.7); EOSINOPHILS % (AUTO) 3.8 % (0.0-7.0); HEMATOCRIT 29.6 % (31.2-41.9); HEMOGLOBIN 9.3 g/dL (10.9-14.3); LYMPHOCYTES # (AUTO) 1.2 K/uL (0.8-4.8); LYMPHOCYTES % (AUTO) 19.4 % (20.5-51.5); MEAN CORPUSCULAR HEMOGLOBIN 25.5 uug (24.7-32.8); MEAN CORPUSCULAR HGB CONC 31 g/dL (32.3-35.6); MEAN CORPUSCULAR VOLUME 81.2 fL (75.5-95.3); MONOCYTES # (AUTO) 0.5 K/uL (0.1-1.30); MONOCYTES % (AUTO) 7.7 % (0.0-11.0); NEUTROPHILS # (AUTO) 4.1 K/uL (1.8-8.9); NEUTROPHILS % (AUTO) 68.1 % (38.5-71.5); PLATELET COUNT (AUTO) 418 K/uL (179-408); RED BLOOD CELL COUNT(AUTO) 3.65 MIL/uL (3.63-4.92); WHITE BLOOD COUNT (AUTO) 6.1 K/uL (3.8-11.8)
[2023-05-24 17:18] LABS: *BILIRUBIN,URIN NEGATIVE (NEGATIVE); *BLOOD, URINE 3+ (NEGATIVE); *CLARITY,URINE CLEAR (CLEAR); *COLOR,URINE YELLOW (YELLOW); *KETONES,URINE NEGATIVE (NEGATIVE); *PROTEIN,URINE 2+ (NEGATIVE); *UROBILINOGEN,URINE 0.2 E.U./dl (NORMAL); LEUKOCYTE ESTERASE ,URINE 1+ (NEGATIVE); NITRITE, URINE POSITIVE (NEGATIVE); UGLUCOSE NEGATIVE (NEGATIVE)
[2023-05-24 17:21] LABS: DIFFERENTIAL COMMENT 1
[2023-05-24 17:29] LABS: CALCIUM 9.1 mg/dL (8.5-10.1); POTASSIUM 3.7 mmol/L (3.5-5.1)
[2023-05-24 17:34] LABS: ALBUMIN 3.1 g/dL (3.4-5.0); BILIRUBIN,DIRECT 0.1 mg/dL (0.0-0.2); BILIRUBIN,TOTAL 0.5 mg/dL (0.2-1.0); TOTAL PROTEIN, SERUM 7.5 g/dL (6.4-8.2)
[2023-05-24 17:47] LABS: WBC,URINE 50-80 /HPF (0-3)
[2023-05-24 17:48] LABS: BACTERIA,URINE MANY /HPF (NONE SEEN); MUCUS,URINE MODERATE /LPF (0-FEW); SQUAMOUS EPITHELIAL CELL,UR FEW /HPF (NONE SEEN)
[2023-05-24] MEDS ORDERED: DOXYCYCLINE HYCLATE 100 MG TABLET PO ONE (18:15)
[2023-05-24] MEDS ORDERED: DOXY100C5 PO (18:20)
[2023-05-24] MEDS ORDERED: NABU-140 PO (18:20)
[2023-05-24] MEDS ORDERED: DOXYCYCLINE HYCLATE 100 MG TABLET ONE (18:20)
[2023-05-24 19:11] VITALS: BP 128/66
== END 2023-05-24 19:12 | disposition home or self-care (01) ==
LOC: ER 14:00
DX: R10.32 Left lower quadrant pain (principal); E03.9 Hypothyroidism, unspecified; Z79.2 Long term (current) use of antibiotics; Z79.899 Other long term (current) drug therapy
CPT/HCPCS: 36415; 76856; 83690; 85025; 85730; A4606; A4663

== ENCOUNTER 2023-05-25 12:46 | Inpatient (IN) | payer OTHER ==
[~2023-05-25] VITALS: Ht 157.5 cm; Wt 59.0 kg
[~2023-05-25 12:46] MED LIST changes: +DOXY100C5 PO; +NABU-140 PO
[2023-05-25 22:00] VITALS: BP 120/76; TEMP 98.6; O2SAT 99
[2023-05-26] MEDS ORDERED: ONDANSETRON 4 MG/2 ML VIAL IV PRN
[2023-05-26] MEDS ORDERED: ACETAMINOPHEN 325 MG TABLET PO PRN
[2023-05-26] MEDS ORDERED: REMEDY ESSENTIAL ZINC PASTE 113 GM TP PRN
[2023-05-26] MEDS ORDERED: ZOLPIDEM 5 MG TABLET PO PRN
[2023-05-26] MEDS ORDERED: MAGNESIUM HYDROXIDE 30 ML LIQUID UDC PO PRN
[2023-05-26 07:10] LABS: BASOPHILS % (AUTO) 0.9 % (0.0-2.0); EOSINOPHILS # (AUTO) 0.2 K/uL (0.0-0.7); EOSINOPHILS % (AUTO) 4.3 % (0.0-7.0); HEMATOCRIT 27.6 % (31.2-41.9); HEMOGLOBIN 8.9 g/dL (10.9-14.3); LYMPHOCYTES % (AUTO) 23.9 % (20.5-51.5); MEAN CORPUSCULAR HEMOGLOBIN 26.1 uug (24.7-32.8); MEAN CORPUSCULAR HGB CONC 32 g/dL (32.3-35.6); MEAN CORPUSCULAR VOLUME 80.9 fL (75.5-95.3); MONOCYTES # (AUTO) 0.3 K/uL (0.1-1.30); MONOCYTES % (AUTO) 7.9 % (0.0-11.0); NEUTROPHILS # (AUTO) 2.6 K/uL (1.8-8.9); PLATELET COUNT (AUTO) 356 K/uL (179-408); RED BLOOD CELL COUNT(AUTO) 3.42 MIL/uL (3.63-4.92); RED CELL DISTRIBUTION WIDTH 16.9 % (12.3-17.7); WHITE BLOOD COUNT (AUTO) 4.1 K/uL (3.8-11.8)
[2023-05-26 07:33] LABS: CALCIUM 8.8 mg/dL (8.5-10.1); CREATININE 0.9 mg/dL (0.6-1.3); DIFFERENTIAL COMMENT 1; MAGNESIUM 1.9 mg/dL (1.8-2.4); PHOSPHOROUS 4.3 mg/dL (2.5-4.9)
[2023-05-26 08:09] LABS: POTASSIUM 3.6 mmol/L (3.5-5.1)
[2023-05-26 12:00] VITALS: BP 120/73; TEMP 97.8; O2SAT 97
[2023-05-26 16:07] VITALS: BP 113/70; TEMP 97.9; O2SAT 100
[2023-05-26 17:27] LABS: IRON, SERUM 21 ug/dL (50-175)
[2023-05-26 17:53] LABS: FERRITIN 17 ng/mL (8-252)
[2023-05-26 20:00] VITALS: BP 119/69; TEMP 98.2; O2SAT 97
[2023-05-27 06:07] LABS: CANCER AG, 125 30.4 U/mL (0.0-38.1)
[2023-05-27 07:00] VITALS: BP 113/70; TEMP 98; O2SAT 100
[2023-05-27 08:06] LABS: *IMMUNOGLOBULIN G, SERUM 1218 mg/dL (586-1602); IMMUNOGLOBULIN A, SERUM 301 mg/dL (87-352)
[2023-05-27 15:06] LABS: A/G RATIO 0.8 (0.7-1.7); ALBUMIN 3.1 g/dL (2.9-4.4); ALPHA-1-GLOBULIN 0.4 g/dL (0.0-0.4); ALPHA-2-GLOBULIN 1.2 g/dL (0.4-1.0); BETA GLOBULIN 1.1 g/dL (0.7-1.3); GAMMA GLOBULIN 1.4 g/dL (0.4-1.8); M-SPIKE Not Observed g/dL (Not Observed)
[2023-06-03 07:06] LABS: IMMUNOGLOBULIN M, SERUM 123 mg/dL (26-217)
== END 2023-05-27 08:00 | disposition left against medical advice (07) | DRG 530 ==
LOC: ER 12:51 → TRANSITION 14:32 → MEDSURG3 20:27
PROVIDERS: ADMIT Nurse Practitioner Acute Care; ATTEND Nurse Practitioner Acute Care
DX: C56.1 Malignant neoplasm of right ovary (principal); C79.89 Secondary malignant neoplasm of other specified sites; D64.9 Anemia, unspecified; E03.9 Hypothyroidism, unspecified; K51.90 Ulcerative colitis, unspecified, without complications; R10.32 Left lower quadrant pain; Z85.038 Personal history of other malignant neoplasm of large intestine; Z90.49 Acquired absence of other specified parts of digestive tract; Z92.21 Personal history of antineoplastic chemotherapy; N83.202 Unspecified ovarian cyst, left side; Z93.3 Colostomy status; Z79.60 Long term (current) use of unspecified immunomodulators and immunosuppressants; R59.1 Generalized enlarged lymph nodes; R91.1 Solitary pulmonary nodule
CPT/HCPCS: 36415; 71045; 82378; 82784; 83550; 83735; 84100; 84155; 84165; 85025; 86301; 86334; 93005; A4606; A4663; G0378